=== PATIENT | male | born 1980 | race Caucasian/White ===

== ENCOUNTER 2016-10-30 13:49 | Emergency (ER) | payer SELFPAY ==
[2016-10-30] MEDS ORDERED: Ondansetron HCl/PF 4 MG/2 ML Vial ONE (14:08)
== END 2016-10-30 15:06 | disposition home or self-care (01) ==
LOC: BURERS 13:49
DX: K08.89 Other specified disorders of teeth and supporting structures (principal)
CPT/HCPCS: 96361; 96374; J2405

== ENCOUNTER 2017-02-22 12:20 | Emergency (ER) | payer SELFPAY ==
[2017-02-22] MEDS ORDERED: Bacitracin Zinc 1 Packet ONE (12:57)
== END 2017-02-22 13:03 | disposition home or self-care (01) ==
LOC: BURERS 12:20
DX: S51.811A Laceration without foreign body of right forearm, initial encounter (principal); F17.210 Nicotine dependence, cigarettes, uncomplicated; W45.0XXA Nail entering through skin, initial encounter
CPT/HCPCS: 12002